=== PATIENT | male | born 2000 | race Two or more races ===

== ENCOUNTER 2019-04-12 17:57 | Emergency (ER) | payer SELFPAY ==
[2019-04-12] MEDS ORDERED: Acetaminophen 500 MG TAB ONE (19:26)
[2019-04-12 20:01] LABS: #Lymphocytes 0.8 thou/uL (1.20-3.40); #Monocytes 0.9 thou/uL (0.11-0.59); #Neutrophils 13.3 thou/uL (1.40-6.50); %Basophils 0.2 % (0.0-1.0); %Eosinophils 0.1 % (0.0-10.0); %Lymphocytes 5.4 % (28.0-48.0); %Monocytes 6.1 % (0.0-4.0); %Neutrophils 88.3 % (31.0-61.0); Hemoglobin 18.1 g/dL (14.0-18.0); Mean Corpuscular HGB CONC 35.9 g/dL (32.0-36.0); Mean Corpuscular Volume 89.1 fL (78.0-98.0); Mean Platelet Volume 7.6 fL (7.4-10.4); Platelet Count 208 thou/uL (130-400); RBC Distribution Width 11.7 % (11.5-14.5); Red Blood Cell (RBC) Count 5.65 mill/uL (4.00-5.20); White Blood Cell (WBC) Count 15.1 thou/uL (4.8-10.8)
--- NOTE | 2019-04-12 20:02 | RAD ---
2 view chest: [04/12/2019] Comparison:None available HISTORY: Cough, elevated white blood cell count FINDINGS: Heart and mediastinal contours are grossly unremarkable. No pneumothorax or pleural fluid. No focal consolidation or alveolar edema. IMPRESSION: No acute findings.
[2019-04-12 20:26] LABS: ALT (SGPT) 18 U/L (8-55); AST (SGOT) 19 U/L (10-45); Albumin 5.1 g/dL (3.5-5.0); Alkaline Phosphatase 54 U/L (50-130); Anion Gap 16 mmol/L (10-20); BUN (Urea Nitrogen) 10 mg/dL (8.4-21.0); Calc. Creatinine Clearance 0 mL/min (70-130); Carbon Dioxide 25 mmol/L (22-29); Chloride 100 mmol/L (98-107); Estimated GFR-MDRD Greater than 90; Globulin 3.2 g/dL (2.4-3.5); Glucose 85 mg/dL (70-105); Potassium 3.7 mmol/L (3.5-5.1); Protein, Total 8.3 g/dL (6.0-8.3); Sodium 137 mmol/L (136-145)
== END 2019-04-12 22:06 | disposition home or self-care (01) ==
LOC: ERS 17:57
DX: R79.89 Other specified abnormal findings of blood chemistry (principal)
CPT/HCPCS: 71046; 80053; 85025; 96360